=== PATIENT | female | born 1975 | race Caucasian/White ===

== ENCOUNTER 2019-02-11 14:42 | Emergency (ER) | payer OTHER ==
--- OUTSIDE RECORDS SUMMARY | 2019-02-11 15:02 | XMS REPORT ---
:1975 Author Organization eClinicalWorks Care Team Providers Name Role Phone Shama Chahleen Provider Role Unavailable Encounters Encounter Location Date Unknown [facility] January 06, 2016 Unknown [facility] January 29, 2016 Problems Problem Type Condition ICD-9 Code Onset Dates Condition Status Problem Pain in joint, site unspecified 719.40 Active Problem Unspecified myalgia and myositis 729.1 Active Problem Generalized anxiety disorder 300.02 Active Problem Major depressive disorder, 296.32 Active recurrent episode, moderate Problem Attention or concentration R41.840 Active deficit Problem Chronic lymphocytic thyroiditis 245.2 Active Problem Unspecified alopecia 704.00 Active Problem Encounter for therapeutic drug V58.83 Active monitoring Problem Chronic fatigue syndrome 780.71 Active Social History Social History Element Qualifiers Date Reported Tobacco Use: . Are you a: current smoker 1/2 May 29, 2014 ppd Use of recreational / street drugs? . Answer: No May 29, 2014 Do you drink alcohol? . Status: Yes, Type: Socially May 29, 2014 Summary Purpose eClinicalWorks Submission
--- OUTSIDE RECORDS SUMMARY | 2019-02-11 15:02 | XMS REPORT | Clinical Summary ---
:1975 Author Organization [facility] Address [address] [place] [address] Care Team Providers Name Role Phone Aleida Headley MD Primary Care Provider Unavailable Allergies Active Allergy Reactions Severity Noted Date Comments Iodine And Iodide Containing Products 09/17/2017 Medications Not on file Active Problems Not on file Social History Tobacco Use Types Packs/Day Years Used Date Current Every Day Smoker 1 Smokeless Tobacco: Never Used Alcohol Use Drinks/Week oz/Week Comments Yes Sex Assigned at Date Recorded Not on file Job Start Date Occupation Industry Not on file Not on file Not on file Travel History Travel Start Travel End No recent travel history available. Last Filed Vital Signs Not on file Plan of Treatment Not on file Results Not on fileafter 02/10/2018 Insurance Payer Benefit Plan / Subscriber ID Type Phone Address Group MEDICAID - MEDICAID MEDICAID COMM xxxxxxxxx Medicaid Contracted [facility] CHOICE
--- OUTSIDE RECORDS SUMMARY | 2019-02-11 15:02 | XMS REPORT | Continuity of Care Document ---
:1975 Author Organization [employer] Care Team Providers Name Role Phone [employer] Unavailable Unavailable Problems Problem Status Onset Classification Date Comments Source Date Reported Unspecified Active Problem 04/18/2018 2.16.840. myalgia and 1.836321. myositis 4.391.11. 12601 Chronic Active Problem 04/18/2018 2.16.840. lymphocytic 1.505514. thyroiditis 4.391.11. 69447 Pain in joint, Active Problem 04/18/2018 2.16.840. site unspecified 1.829442. 4.391.11. 85982 Chronic fatigue Active Problem 04/18/2018 2.16.840. syndrome 1.920266. 4.391.11. 67275 ADD without Active Problem 04/18/2018 2.16.840. hyperactivity 1.879207. 4.391.11. 81098 Attention or Active Problem 04/18/2018 2.16.840. concentration 1.223336. deficit 4.391.11. 50907 Adderall use Active Problem 04/18/2018 2.16.840. disorder, mild, 1.359581. abuse 4.391.11. 64787 Encounter for Active Problem 04/18/2018 2.16.840. therapeutic drug 1.502268. monitoring 4.391.11. 08265 Unspecified Active Problem 04/18/2018 2.16.840. alopecia 1.485384. 4.391.11. 47667 Generalized Active Problem 04/18/2018 2.16.840. anxiety disorder 1.704294. 4.391.11. 45197 Major depressive Active Problem 04/18/2018 2.16.840. disorder, 1.779642. recurrent 4.391.11. episode, moderate 71385 Medications No Data Provided for This Section Allergies, Adverse Reactions, Alerts No Known Medication Allergies Immunizations No Data Provided for This Section Results No Data Provided for This Section Pathology Reports No Data Provided for This Section Diagnostic Reports No Data Provided for This Section Consultation Notes No Data Provided for This Section Discharge Summaries No Data Provided for This Section History and Physicals No Data Provided for This Section Vital Signs No Data Provided for This Section Encounters Location Location Encounter Encounter Reason Attending ADM DC Status Source Details Type Number For Provider Date Date Visit [place] Unknown [id number] 01/05 01/05 2.16.84 Family [id number] /2015 0.1.113 Physicians [id number] 91.11.1 [id number] [place] Unknown [id number] 01/05 01/05 2.16.84 Family [id number] /2015 0.1.113 Physicians [id number] 91.11.1 [id number] [place] Unknown [id number] 01/28 01/28 2.16.84 Family [id number] /2015 0.1.113 Physicians [id number] 91.11.1 [id number] Procedures No Data Provided for This Section Assessment and Plan No Data Provided for This Section Plan of Care No Data Provided for This Section Social History Social History Date Source Social History ElementQualifiersDate Reported 05/29/2014 [id number]. Tobacco Use: [id number] . Are you a: current smoker 1/2 ppd May 29, 2014 Use of recreational / street drugs? . Answer: No May 29, 2014 Do you drink alcohol? . Status: Yes, Type: Socially May 29, 2014 Family History No Data Provided for This Section Advance Directives No Data Provided for This Section Functional Status No Data Provided for This Section
--- OUTSIDE RECORDS SUMMARY | 2019-02-11 15:02 | XMS REPORT ---
:1975 Author Organization eClinicalWorks Care Team Providers Name Role Phone Niranjan Andres Provider Role Unavailable Allergies No Known Allergies Problems Problem Type Condition Code Onset Dates Condition Status Problem Unspecified myalgia and myositis 729.1 Active Problem Chronic lymphocytic thyroiditis 245.2 Active Problem Pain in joint, site unspecified 719.40 Active Problem Chronic fatigue syndrome 780.71 Active Problem ADD (attention deficit disorder) F98.8 Active without hyperactivity Problem Attention or concentration deficit R41.840 Active Problem Adderall use disorder, mild, abuse F15.10 Active Problem Encounter for therapeutic drug V58.83 Active monitoring Problem Unspecified alopecia 704.00 Active Problem Generalized anxiety disorder 300.02 Active Problem Major depressive disorder, 296.32 Active recurrent episode, moderate Medications No Known Medications Results No Known Results Summary Purpose eClinicalWorks Submission
--- OUTSIDE RECORDS SUMMARY | 2019-02-11 15:02 | XMS REPORT ---
:1975 Author Organization eClinicalWorks Care Team Providers Name Role Phone Starla Jasmin Provider Role Unavailable Encounters Encounter Location Date Unknown [facility] January 06, 2016 Problems Problem Type Condition ICD-9 Code [...]
--- OUTSIDE RECORDS SUMMARY | 2019-02-11 15:03 | XMS REPORT ---
:1975 Author Organization [facility] Address [address] [place] [address] Dr. Seymour [address] [place] [address] Care Team Providers Name Role Phone Unavailable Unavailable Unavailable Problems This patient has no known problems. Allergies, Adverse Reactions, Alerts This patient has no known allergies or adverse reactions. Medications This patient has no known medications.
[2019-02-11 15:50] LABS: Urine Blood 2+ (NEG); Urine Glucose NEGATIVE (NEG); Urine Protein 1+ (NEG); Urine Specific Gravity >1.030 (1.005-1.030)
[2019-02-11 16:33] LABS: Absolute Lymphocytes (CBC) 1.4 K/uL (0.7-4.9); Basophils % 0.7 % (0-1.3); Eosinophils % 1.2 % (0-4.4); Lymphocytes % 33.4 % (15.3-44.8); Monocytes % 6.8 % (3.3-12.3)
[2019-02-11 16:51] LABS: ALT/SGPT 34 U/L (12-78); AST/SGOT 35 U/L (15-37); Albumin 3.8 g/dL (3.4-5.0); Alkaline Phosphatase 76 U/L (45-117); BUN Blood Urea Nitrogen 13 mg/dL (7-18); Bicarbonate 24 mmol/L (21-32); Bilirubin Direct < 0.1 mg/dL (0-0.2); Bilirubin Total 0.2 mg/dL (0.2-1.0); Glucose Level 80 mg/dL (74-106); Lipase 140 U/L (73-393); Potassium 3.5 mmol/L (3.5-5.1); Protein, Total 7.7 g/dL (6.4-8.2); Sodium Level 138 mmol/L (136-145)
[2019-02-11] MEDS ORDERED: CIPROFLOXACIN HCL 500 MG TAB ONE (17:21)
[2019-02-11] MEDS ORDERED: metroNIDAZOLE 500 MG TABLET ONE (17:21)
--- NOTE | 2019-02-11 19:09 | EDPHYS ---
Physician Documentation [facility] Name: Cailin Garcia Age: 43 yrs Sex: Female : 1975 Arrival Date: 02/11/2019 Time: 14:44 Bed 23 Private MD: Marquez Mendoza ED Physician Niall Yeh HPI: 02/11 15:47 This 43 yrs old Female presents to ER via Ambulatory with complaints of jr8 Abdominal Pain, Abdominal Swelling. 15:47 The patient presents with abdominal pain that is diffuse. Onset: The symptoms/episode jr8 began/occurred acutely, 3 day(s) ago. Associated signs and symptoms: Pertinent positives: diarrhea, bloating, Pertinent negatives: nausea and vomiting, anorexia, blood in stools, dysuria. The symptoms are described as crampy. Modifying factors: The symptoms are alleviated by nothing, the symptoms are aggravated by nothing. Severity of pain: At its worst the pain was very mild in the emergency department the pain is unchanged. The patient has not experienced similar symptoms in the past. The patient has not recently seen a physician. reports generalized abdominal bloating and diarrhea x 3 days. Fever yesterday that resolved. . 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 - Social history:: Smoking status: Patient uses tobacco products, smokes one-half pack cigarettes per day. - Ebola Screening: : No symptoms or risks identified at this time. ROS: 15:47 Eyes: Negative for injury, pain, redness, and discharge, ENT: Negative for injury, jr8 pain, and discharge, Neck: Negative for injury, pain, and swelling, Cardiovascular: Negative for chest pain, palpitations, and edema, Respiratory: Negative for shortness of breath, cough, wheezing, and pleuritic chest pain, Back: Negative for injury and pain, : Negative for injury, bleeding, discharge, and swelling, MS/Extremity: Negative for injury and deformity, Skin: Negative for injury, rash, and discoloration, Neuro: Negative for headache, weakness, numbness, tingling, and seizure. 15:47 Constitutional: Positive for body aches, fever, Negative for poor PO intake. 15:47 Abdomen/GI: Positive for diarrhea, abdominal cramps, Negative for nausea and vomiting, black/tarry stool, rectal pain, rectal bleeding. Exam: 15:47 Constitutional: This is a well developed, well nourished patient who is awake, alert, jr8 and in no acute distress. Head/Face: Normocephalic, atraumatic. Eyes: Pupils equal round and reactive to light, extra-ocular motions intact. Lids and lashes normal. Conjunctiva and sclera are non-icteric and not injected. Cornea within normal limits. Periorbital areas with no swelling, redness, or edema. ENT: Nares patent. No nasal discharge, no septal abnormalities noted. Tympanic membranes are normal and external auditory canals are clear. Oropharynx with no redness, swelling, or masses, exudates, or evidence of obstruction, uvula midline. Mucous membranes moist. Neck: Trachea midline, no thyromegaly or masses palpated, and no cervical lymphadenopathy. Supple, full range of motion without nuchal rigidity, or vertebral point tenderness. No Meningismus. Chest/axilla: Normal chest wall appearance and motion. Nontender with no deformity. No lesions are appreciated. Cardiovascular: Regular rate and rhythm with a normal S1 and S2. No gallops, murmurs, or rubs. Normal PMI, no JVD. No pulse deficits. Respiratory: Lungs have equal breath sounds bilaterally, clear to auscultation and percussion. No rales, rhonchi or wheezes noted. No increased work of breathing, no retractions or nasal flaring. Back: No spinal tenderness. No costovertebral tenderness. Full range of motion. Skin: Warm, dry with normal turgor. Normal color with no rashes, no lesions, and no evidence of cellulitis. MS/ Extremity: Pulses equal, no cyanosis. Neurovascular intact. Full, normal range of motion. Neuro: Awake and alert, GCS 15, oriented to person, place, time, and situation. Cranial nerves II-XII grossly intact. Motor strength 5/5 in all extremities. Sensory grossly intact. Cerebellar exam normal. Normal gait. 15:47 Abdomen/GI: Exam negative for Inspection: abdomen appears normal, Bowel sounds: hyperactive, in all quadrants, Palpation: soft, nontender. Vital Signs: 14:59 BP 111 / 78; Pulse 93; Resp 18 S; Temp 98.8(TE); Pulse Ox 99% on R/A; Weight 81.65 kg aa5 (R); Height 5 ft. 9 in. (175.26 cm) (R); Pain 4/10; 16:14 BP 112 / 69; Pulse 80; Resp 16 S; Pulse Ox 98% on R/A; ca1 16:57 BP 120 / 77; Pulse 69; Resp 18 S; Pulse Ox 97% on R/A; ca1 17:47 BP 109 / 88; Pulse 75; Resp 16 S; Temp 97.7(TE); Pulse Ox 95% on R/A; ca1 18:53 BP 104 / 77; Pulse 75; Resp 16 S; Pulse Ox 100% on R/A; ca1 14:59 Body Mass Index 26.58 (81.65 kg, 175.26 cm) aa5 MDM: 15:34 Patient medically screened. jr8 18:55 Differential diagnosis: diverticulitis, gastritis, non-specific abd pain, urinary tract jr8 infection, infectious diarrhea, inflammatory diarrhea. Data reviewed: vital signs, nurses notes, lab test result(s), and as a result, I will discharge patient. Data interpreted: Pulse oximetry: on room air is 100 %. Interpretation: normal. Counseling: I had a detailed discussion with the patient and/or guardian regarding: the historical points, exam findings, and any diagnostic results supporting the discharge/admit diagnosis, lab results, the need for outpatient follow up, a family practitioner, a construction checker, to return to the emergency department if symptoms worsen or persist or if there are any questions or concerns that arise at home. Response to treatment: the patient's symptoms have mildly improved after treatment. 02/11 15:37 Order name: Urine Dipstick--Ancillary (enter results); Complete Time: 16:03 em1 02/11 15:37 Order name: Urine --Ancillary (enter results); Complete Time: 16:03 em1 02/11 16:04 Order name: Basic Metabolic Panel; Complete Time: 16:52 02/11 16:04 Order name: CBC with Diff; Complete Time: 16:43 02/11 16:04 Order name: Creatinine for Radiology; Complete Time: 16:51 02/11 16:04 Order name: Hepatic Function; Complete Time: 16:52 02/11 16:04 Order name: Lipase; Complete Time: 16:52 02/11 16:05 Order name: Stool Culture 02/11 16:05 Order name: Ova And Parasites 02/11 16:05 Order name: Occult Blood; Complete Time: 16:51 02/11 16:05 Order name: Fecal Leukocyte Stain 02/11 16:05 Order name: CDIFF 02/11 16:04 Order name: IV Saline Lock; Complete Time: 16:14 02/11 16:04 Order name: Labs collected and sent; Complete Time: 16:14 Administered Medications: 17:00 Drug: Cipro 500 mg Route: PO; ca1 18:54 Follow up: Response: No adverse reaction ca1 17:08 Drug: Flagyl 500 mg Route: PO; ca1 18:54 Follow up: Response: No adverse reaction ca1 Disposition: 02/11/19 18:56 Discharged to Home. Impression: Diarrhea, unspecified. - Condition is Stable. - Discharge Instructions: Diarrhea, Adult. - Prescriptions for Bentyl 20 mg Oral Tablet - take 1 tablet by ORAL route every 6 hours As needed; 20 tablet. Cipro 500 mg Oral Tablet - take 1 tablet by ORAL route every 12 hours for 10 days; 20 tablet. Flagyl 500 mg Oral Tablet - take 1 tablet by ORAL route every 6 hours for 10 days; 40 tablet. Zofran 4 mg Oral Tablet - take 1 tablet by ORAL route every 12 hours As needed; 20 tablet. - Medication Reconciliation Form, Thank You Letter, Antibiotic Education, Prescription Opioid Use form. - Follow up: Marquez Mendoza DO; When: 5 - 6 days; Reason: Recheck today's complaints, Continuance of care, Re-evaluation by your physician. - Problem is new. - Symptoms have improved. Addendum: 02/18/2019 18:59 Co-signature as Attending Physician, Niall Yeh MD Available for consultation at p s1 all times . Signatures: Dispatcher [employer] Alea Whittington, RN RN aa5 Michael Chua PA PA jr8 Niall Yeh MD MD ps1 Aliza Smith RN RN ca1 Corrections: (The following items were deleted from the chart) 02/11 19:06 18:56 02/11/2019 18:56 Discharged to Home. Impression: Diarrhea, unspecified. Condition ca1 is Stable. Forms are Medication Reconciliation Form, Thank You Letter, Antibiotic Education, Prescription Opioid Use. Follow up: Marquez Mendoza; When: 5 - 6 days; Reason: Recheck today's complaints, Continuance of care, Re-evaluation by your physician. Problem is new. Symptoms have improved. jr8
--- NOTE | 2019-02-11 19:09 | ER ---
Nurse's Notes [facility] Name: Cailin Garcia Age: 43 yrs Sex: Female : 1975 Arrival Date: 02/11/2019 Time: 14:44 Bed 23 Private MD: Marquez Mendoza Diagnosis: Diarrhea, unspecified Presentation: 02/11 14:56 Presenting complaint: Patient states: "my stomach just feel swollen, fever, diarrhea, aa5 body aches that began about 3 days ago". Transition of care: patient was not received from another setting of care. Onset of symptoms was February 2019. Risk Assessment: Do you want to hurt yourself or someone else? Patient reports no desire to harm self or others. Initial Sepsis Screen: Does the patient meet any 2 criteria? No. Patient's initial sepsis screen is negative. Does the patient have a suspected source of infection? No. Patient's initial sepsis screen is negative. Care prior to arrival: None. 14:56 Method Of Arrival: Ambulatory [facility] 14:56 Acuity: GOMEZ 3 aa5 [employer]: 14:59 LMP 02/04/2019 aa5 15:47 LMP 02/05/2019 jr8 Historical: - Allergies: 14:58 Iodine; aa5 - Home Meds: 14:58 Synthroid 200 mcg oral tab once daily [Active]; Adderall XR Oral [Active]; aa5 - PMHx: 14:58 Hashimotos; ADD/ADHD; aa5 - PSHx: 14:58 breast augmentation; jaw repair; Tubal ligation; aa5 - Immunization history:: Adult Immunizations unknown. - Social history:: Smoking status: Patient uses tobacco products, smokes one-half pack cigarettes per day. - Ebola Screening: : No symptoms or risks identified at this time. Screenin:10 Abuse screen: Denies threats or abuse. Denies injuries from another. Nutritional ca1 screening: No deficits noted. Tuberculosis screening: No symptoms or risk factors identified. Fall Risk None identified. Assessment: 15:10 General: Appears in no apparent distress. comfortable, Behavior is calm, cooperative, ca1 appropriate for age. Pain: Complains of pain in abdomen Pain does not radiate. Pain currently is 3 out of 10 on a pain scale. Quality of pain is described as crampy, Pain began 2-3 days ago. Neuro: Level of Consciousness is awake, alert, obeys commands, Oriented to person, place, time, situation. Cardiovascular: Heart tones S1 S2 present Capillary refill < 3 seconds Patient's skin is warm and dry. Respiratory: Airway is patent Respiratory effort is even, unlabored, Respiratory pattern is regular, symmetrical, Breath sounds are clear bilaterally. GI: Abdomen is round non-distended, Bowel sounds present X 4 quads. Abd is soft and non tender X 4 quads. Reports diarrhea, since 3 days. : No deficits noted. No signs and/or symptoms were reported regarding the genitourinary system. EENT: No deficits noted. No signs and/or symptoms were reported regarding the EENT system. Derm: Skin is intact, is healthy with good turgor, Skin is pink, warm \\T\\ dry. Musculoskeletal: Circulation, motion, and sensation intact. Capillary refill < 3 seconds, Range of motion: intact in all extremities. 16:14 Reassessment: Patient appears in no apparent distress at this time. Patient and/or ca1 family updated on plan of care and expected duration. Pain level reassessed. Patient is alert, oriented x 3, equal unlabored respirations, skin warm/dry/pink. 16:57 Reassessment: Patient appears in no apparent distress at this time. Patient is alert, ca1 oriented x 3, equal unlabored respirations, skin warm/dry/pink. Pt had 2 BM while at the ER. Loose. Sent specimen to lab for tests. 17:47 Reassessment: Patient appears in no apparent distress at this time. Patient and/or ca1 family updated on plan of care and expected duration. Pain level reassessed. Patient is alert, oriented x 3, equal unlabored respirations, skin warm/dry/pink. 18:53 Reassessment: Patient appears in no apparent distress at this time. Patient is alert, ca1 oriented x 3, equal unlabored respirations, skin warm/dry/pink. Vital Signs: 14:59 BP 111 / 78; Pulse 93; Resp 18 S; Temp 98.8(TE); Pulse Ox 99% on R/A; Weight 81.65 kg aa5 (R); Height 5 ft. 9 in. (175.26 cm) (R); Pain 4/10; 16:14 BP 112 / 69; Pulse 80; Resp 16 S; Pulse Ox 98% on R/A; ca1 16:57 BP 120 / 77; Pulse 69; Resp 18 S; Pulse Ox 97% on R/A; ca1 17:47 BP 109 / 88; Pulse 75; Resp 16 S; Temp 97.7(TE); Pulse Ox 95% on R/A; ca1 18:53 BP 104 / 77; Pulse 75; Resp 16 S; Pulse Ox 100% on R/A; ca1 14:59 Body Mass Index 26.58 (81.65 kg, 175.26 cm) aa5 ED Course: 14:44 Patient arrived in ED. rg4 14:45 Marquez Mendoza DO is Private Physician. rg4 14:57 Triage completed. aa5 14:57 Arm band placed on. aa5 15:03 Aliza Smith, EMILY is Primary Nurse. ca1 15:10 Patient has correct armband on for positive identification. Placed in gown. Bed in low ca1 position. Call light in reach. Side rails up X 1. Pulse ox on. NIBP on. Warm blanket given. 15:10 No provider procedures requiring assistance completed. ca1 15:33 Michael Chua PA is PHCP. jr8 15:33 Niall Yeh MD is Attending Physician. jr8 16:21 Initial lab(s) drawn, by me, sent to lab. Inserted saline lock: 20 gauge in right lt1 antecubital area, using aseptic technique. 18:56 Marquez Mendoza DO is Referral Physician. jr8 19:05 IV discontinued, intact, bleeding controlled, No redness/swelling at site. Pressure ca1 dressing applied. 19:06 Michael Chua PA is PHCP. jr8 Administered Medications: 17:00 Drug: Cipro 500 mg Route: PO; ca1 18:54 Follow up: Response: No adverse reaction ca1 17:08 Drug: Flagyl 500 mg Route: PO; ca1 18:54 Follow up: Response: No adverse reaction ca1 Outcome: 18:56 Discharge ordered by . jr8 19:05 Discharged to home ambulatory. ca1 19:05 Condition: stable 19:05 Discharge instructions given to patient, Instructed on discharge instructions, follow up and referral plans. no drinking with medication, medication usage, Demonstrated understanding of instructions, follow-up care, medications, Prescriptions given X 4. 19:06 Patient left the ED. ca1 Signatures: Alea Medel, EMILY RN aa5 Michael Chua PA PA jr8 Sana Mina rg4 Aliza Smith RN RN ca1 Domingo, Paola lt1 Corrections: (The following items were deleted from the chart) 14:58 14:56 Presenting complaint: Patient states: "my stomach just feel swollen, fever, body aa5 aches that began about 3 days ago" aa5
== END 2019-02-11 19:06 | disposition home or self-care (01) ==
LOC: ER 14:42
DX: R19.7 Diarrhea, unspecified (principal); E06.3 Autoimmune thyroiditis; F90.9 Attention-deficit hyperactivity disorder, unspecified type; F17.210 Nicotine dependence, cigarettes, uncomplicated
CPT/HCPCS: 36415; 80048; 80076; 81003; 81025; 82274; 83690; 85025; 87045; 87046; 87177; 87209; 87493; 89055; 99284